=== PATIENT | female | born 1980 | race Caucasian/White ===

== ENCOUNTER 2017-01-23 15:11 | Emergency (ER) | payer OTHER ==
[2017-01-23 15:35] VITALS: BMI 23.5
[2017-01-23] MEDS ORDERED: ASPIRIN 325 MG TABLET PO ONE (16:56)
[2017-01-23] MEDS ORDERED: morphine CARPU-JECT 2 MG/1 ML DISP.SYRIN IVPUSH ONE (16:58)
[2017-01-23] MEDS ORDERED: SODIUM CHLORIDE 1,000 ML IV SCH (17:00)
--- NOTE | 2017-01-23 17:03 | PDOC ---
History of Present Illness - General Chief Complaint: CVA/TIA Stated Complaint: LT SIDE PAIN Time Seen by Provider: 01/23/17 16:36 History Source: Patient Exam Limitations: No Limitations - History of Present Illness Initial Comments: 01/23/17 17:05 Patient is a 36-year-old female with no past medical history presents to the emergency department today complaining of left facial numbness and left arm pain. Patient states that her symptoms started 4 AM this morning. She states that it hurts to move her arm and she also has some numbness and tingling as well. She states that she cannot feel the left side of her face. She has no other complaints at this time denies headache, weakness, lightheadedness, dizziness, shortness of breath, chest pain, ear pain, cough, urinary tract infection, frequency, urgency, dysuria, hematuria. Pt is primarily brazilian speaking. Denies recent travel, and smoking. NIH Stroke Scale - Last Known Well Date/Time & Onset Date Last Known Well: 01/23/17 Time Last Known Well: 04:00 - Initial Evaluation Level of consciousness: Alert Ask patient the month and their age: Answers both correctly Ask patient to open & close eyes; make fist and let go: Obeys both correctly Best gaze (horizontal eye movement): Normal Visual field testing: No visual field loss Facial paresis (Show teeth/raise eyebrows/close eyes tight): Normal symmetrical movement Motor Function: Left Arm: Normal Motor Function: Right Arm: Normal (extends arm 90 (or 45) degrees for 10 seconds without drift Motor Function: Left Leg: Normal (extends leg 30 degrees for 5 seconds without drift) Motor Function: Right Leg: Normal (extends leg 30 degrees for 5 seconds without drift) Limb Ataxia: No ataxia Sensory(Use pinprick test arms,legs,trunk,face/side to side): Mild to moderate decrease in sensation Best language (Describe picture, name items, read sentences): No Aphasia Dysarthria (read several words): Normal articulation Extinction and Inattention: No abnormality - Total Score NIH Stroke Scale Score: 1 Past History - Travel Traveled outside of the country in the last 30 days: No Close contact w/someone who was outside of country & ill: No - Past Medical History Allergies/Adverse Reactions: Allergies Allergy/AdvReac Type Severity Reaction Status Date / Time No Known Allergies Allergy Verified 01/23/17 15:31 Home Medications: Ambulatory Orders NK [No Known Home Medication] 01/23/17 - Immunization History Immunization Up to Date: Yes - Suicide/Smoking/Psychosocial Hx Smoking History: Never smoked Hx Alcohol Use: No Drug/Substance Use Hx: No Substance Use Type: None Review of Systems - Review of Systems Able to Perform ROS?: Yes Comments:: 01/23/17 17:05 CONSTITUTIONAL: Absent: fever, chills, diaphoresis, generalized weakness, malaise, loss of appetite HEENT: Absent: rhinorrhea, nasal congestion, throat pain, throat swelling, difficulty swallowing, mouth swelling, ear pain, eye pain, visual Changes CARDIOVASCULAR: Absent: chest pain, loss of consciousness, palpitations, irregular heart rate, peripheral edema RESPIRATORY: Absent: cough, shortness of breath, dyspnea with exertion, orthopnea, wheezing, stridor, hemoptysis GASTROINTESTINAL: Absent: abdominal pain, abdominal distension, nausea, vomiting, diarrhea, constipation, melena, hematochezia GENITOURINARY: Absent: dysuria, frequency, urgency, hesitancy, hematuria, flank pain, genital pain MUSCULOSKELETAL: Present: L arm pain Absent: myalgia, arthralgia, joint swelling SKIN: Absent: rash, itching, pallor HEMATOLOGIC/IMMUNOLOGIC: Absent: easy bleeding, easy bruising, lymphadenopathy, frequent infections ENDOCRINE: Absent: unexplained weight gain, unexplained weight loss, heat intolerance, cold intolerance NEUROLOGIC: Present: numbness and tingling to face. Absent: headache, focal weakness or dizziness, unsteady gait, seizure, mental status changes, bladder or bowel incontinence PSYCHIATRIC: Absent: anxiety, depression, suicidal or homicidal ideation, hallucinations. Is the patient limited Estonian proficient: No *Physical Exam - Vital Signs Last Vital Signs Temp Pulse Resp BP Pulse Ox 98.0 F 60 20 122/56 100 01/23/17 15:32 01/23/17 15:32 01/23/17 15:32 01/23/17 15:32 01/23/17 15:32 - Physical Exam Comments: 01/23/17 17:06 GENERAL: Well developed, well nourished. Awake and alert. No acute distress. HEENT: Normocephalic, atraumatic. PERRLA, EOMI. No conjunctival pallor. Sclera are non- icteric. Moist mucous membranes. Oropharynx is clear. NECK: Supple. Full ROM. No JVD. Carotid pulses 2+ and symmetric, without bruits. No thyromegaly. No lymphadenopathy. CARDIOVASCULAR: Regular rate and rhythm. No murmurs, rubs, or gallops. Distal pulses are 2+ and symmetric. PULMONARY: No evidence of respiratory distress. Lungs clear to auscultation bilaterally. No wheezing, rales or rhonchi. ABDOMINAL: Soft. Non-tender. Non-distended. No rebound or guarding. No organomegaly. Normoactive bowel sounds. MUSCULOSKELETAL Normal range of motion at all joints. No bony deformities or tenderness. No CVA tenderness. EXTREMITIES: No cyanosis. No clubbing. No edema. No calf tenderness. SKIN: Warm and dry. Normal capillary refill. No rashes. No jaundice. NEUROLOGICAL: Alert, awake, appropriate. Cranial nerves 2-12 intact. Light touch deficient on the R V2 (face). No deficits to light touch and temperature in the rest of the face, upper extremities and lower extremities. No motor deficits in the in face , upper extremities and lower extremities. Normoreflexic in the upper and lower extremities. Normal speech. Toes are down-going bilaterally. Gait is normal without ataxia. PSYCHIATRIC: Cooperative. Good eye contact. Appropriate mood and affect. ED Treatment Course - LABORATORY CBC & Chemistry Diagram: 01/23/17 17:15 01/23/17 17:15 - RADIOLOGY Radiology Studies Ordered: Category Date Time Status HEAD CT (STROKE) [CT] Stat CT Scan 01/23/17 16:56 Ordered Medical Decision Making - Medical Decision Making 01/23/17 18:17 Patient is a 36-year-old female with no past medical history of since the emergency department with 12 hours of facial numbness to the left side and arm pain. Given onset of symptoms will rule out TIA/stroke. Reflexes are normal, less likely MS given lack of occular symptoms. No ptosis or palsy. 1.CBC, CMP, Cardiac labs, PT/INR, UA, UC 2.CT head, EKG 3.IV fluids, morphine 4.reevaluate 01/23/17 19:[address] is negative at this time no evidence of acute intracranial pathology or bleed. Will add Lyme titer at this time. Will consult with Dr. Vargas for further recommendations. Labs are unremarkable at this time. Pt. states that her pain is a little better after the morphine. Sign out given to ORION Quezada for further evaluation and for consult with Dr. Vargas. *DC/Admit/Observation/Transfer Diagnosis at time of Disposition: Facial paresthesia, Arm paresthesia, left - Discharge Dispostion Disposition: HOME Condition at time of disposition: Stable - Referrals Referrals: Armando Molina MD [Staff Physician] - Becky Conde [Primary Care Provider] - - Patient Instructions Printed Discharge Instructions: DI for Numbness/tingling Print Language: THAI
[2017-01-23] MEDS ORDERED: morphine CARPU-JECT 2 MG/1 ML DISP.SYRIN ONE (17:12)
[2017-01-23] MEDS ORDERED: ASPIRIN 325 MG TABLET ONE (17:12)
[2017-01-23 17:26] LABS: EOSINOPHIL 2.2 % (0-4.5); MCH 26.4 pg (25.7-33.7); MCHC 32.6 g/dl (32.0-36.0); MEAN PLT VOLUME 10.9 fl (7.5-11.1); PLATELET COUNT 149 K/MM3 (134-434); RDW 13.9 % (11.6-15.6); WHITE BLOOD COUNT 5.4 K/mm3 (4.0-10.0)
[2017-01-23 17:29] LABS: URINE APPEARANCE CLEAR; URINE BILIRUBIN NEGATIVE (NEGATIVE); URINE BLOOD NEGATIVE (NEGATIVE); URINE COLOR STRAW; URINE GLUCOSE (UA) NEGATIVE (NEGATIVE); URINE KETONE NEGATIVE (NEGATIVE); URINE LEUK ESTERASE TRACE (NEGATIVE); URINE NITRITE NEGATIVE (NEGATIVE); URINE PROTEIN NEGATIVE (NEGATIVE); URINE UROBILINOGEN NEGATIVE mg/dL (0.2-1.0)
[2017-01-23 17:31] LABS: URINE RBC 1 /hpf (0-3); URINE WBC 4 /hpf (3-5)
[2017-01-23 17:48] LABS: INR 1.02 (0.82-1.09); PROTHROMBIN TIME (PATIENT) 11.2 SEC (9.98-11.88)
[2017-01-23 17:53] LABS: ALBUMIN 3.8 g/dl (3.4-5.0); ANION GAP 3 (8-16); CALCIUM 9.4 mg/dL (8.5-10.1); CO2 32 mmol/L (21-32); CREATININE 0.5 mg/dL (0.55-1.02); GLUCOSE,RANDOM 101 mg/dL (74-106); SGOT/AST 10 U/L (15-37); SGPT/ALT 16 U/L (12-78)
[2017-01-23 17:57] LABS: ALK PHOS 72 U/L (45-117); BILIRUBIN,TOTAL 0.2 mg/dL (0.2-1.0); CPK 78 IU/L (26-192); TOT PROT 7.5 g/dl (6.4-8.2); TROPONIN I < 0.02 ng/ml (0.00-0.05)
--- NOTE | 2017-01-23 18:48 | PDOC ---
*Physical Exam - Vital Signs Last Vital Signs Temp Pulse Resp BP Pulse Ox 98.0 F 60 20 122/56 100 01/23/17 15:32 01/23/17 15:32 01/23/17 15:32 01/23/17 15:32 01/23/17 15:32 - Physical Exam Comments: 01/23/17 18:47 The patient was examined by [DERRELL Hamilton] under my direct supervision. I personally evaluated the patient. I concur with the above findings and the plan of care. 01/23/17 21:59 Patient is well-appearing 36-year-old female who presents to the ER with left facial paresthesias since 4 AM on the day of arrival and left upper extremity pain and paresthesias in the C5/C6 dermatomal distribution. In the ER, patient is well-appearing, afebrile, hemodynamically stable. Serial evaluations reveal decreased fine touch in V1 and more pronounced in V2 distribution on the left; TMs are within normal limit bilaterally. The rest of cranial nerve evaluation is within normal limit. Patient has mildly decreased fine touch within the C5/ C6 dermatomal distribution, most pronounced to the mid forearm. DTRs are +2 bilaterally to upper and lower extremities. Gait is stable. Visual acuity is 20/ 20 bilaterally without corrective lenses. There is no evidence of neurogenic bladder. CT of head shows no evidence of acute cranial pathology. I do not suspect demyelinating disease or CVA at this time. Case discussed with Dr. Molina of neurology. He agrees the patient can be discharged with outpatient follow-up further evaluation. Patient advised of the plan of care and is expressed understanding. Will discharge. ED Treatment Course - LABORATORY CBC & Chemistry Diagram: 01/23/17 17:15 01/23/17 17:15 - ADDITIONAL ORDERS Additional order review: Laboratory Results 01/23/17 01/23/17 01/23/17 17:15 17:15 17:07 PT with INR 11.20 INR 1.02 Sodium 139 Potassium 4.2 Chloride 104 Carbon Dioxide 32 Anion Gap 3 L BUN 15 Creatinine 0.5 L Creat Clearance w eGFR > 60 Random Glucose 101 D Calcium 9.4 Total Bilirubin 0.2 D AST 10 L ALT 16 Alkaline Phosphatase 72 Creatine Kinase 78 Troponin I < 0.02 Total Protein 7.5 Albumin 3.8 Urine Color Urine Appearance Urine pH Urine Protein Urine Glucose (UA) Urine Ketones Urine Blood Urine Nitrite Urine Bilirubin Urine Urobilinogen Urine RBC Urine WBC Ur Epithelial Cells Urine HCG, Qual Negative 01/23/17 17:07 PT with INR INR Sodium Potassium Chloride Carbon Dioxide Anion Gap BUN Creatinine Creat Clearance w eGFR Random Glucose Calcium Total Bilirubin AST ALT Alkaline Phosphatase Creatine Kinase Troponin I Total Protein Albumin Urine Color Straw Urine Appearance Clear Urine pH 7.0 Urine Protein Negative Urine Glucose (UA) Negative Urine Ketones Negative Urine Blood Negative Urine Nitrite Negative Urine Bilirubin Negative Urine Urobilinogen Negative Urine RBC 1 Urine WBC 4 Ur Epithelial Cells Rare Urine HCG, Qual 01/23/17 17:15 RBC 4.46 MCV 81.0 MCHC 32.6 RDW 13.9 MPV 10.9 D Neutrophils % 39.0 L Lymphocytes % 50.9 H Monocytes % 6.9 Eosinophils % 2.2 Basophils % 1.0 - Medications Given in the ED: ED Medications Discontinued Medications Generic Name Dose Route Start Last Admin Trade Name Freq PRN Reason Stop Dose Admin Aspirin 325 mg 01/23/17 16:56 01/23/17 17:30 Asa - PO 01/23/17 16:57 325 mg ONCE ONE Administration Morphine Sulfate 2 mg 01/23/17 16:58 01/23/17 17:31 Morphine Injection - IVPUSH 01/23/17 16:59 Not Given ONCE ONE *DC/Admit/Observation/Transfer Diagnosis at time of Disposition: Facial paresthesia, Paresthesia of left upper extremity - Discharge Dispostion Disposition: HOME Condition at time of disposition: Stable - Referrals Referrals: Armando Molina MD [Staff Physician] - - Patient Instructions Printed Discharge Instructions: DI for Numbness/tingling Print Language: MACEDONIAN
[2017-01-23 19:28] VITALS: TEMP 98.2
[2017-01-23 22:10] VITALS: BP 95/64; PULSE 64
--- NOTE | 2017-01-24 14:10 | EKG ---
Test Reason : Blood Pressure : / mmHG Vent. Rate : 057 BPM Atrial Rate : 057 BPM P-R Int : 172 ms QRS Dur : 082 ms QT Int : 416 ms P-R-T Axes : 065 044 043 degrees QTc Int : 404 ms POOR DATA QUALITY, INTERPRETATION MAY BE ADVERSELY AFFECTED SINUS BRADYCARDIA LOW VOLTAGE QRS BORDERLINE ECG WHEN COMPARED WITH ECG OF 17-NOV-2015 13:09, T WAVE INVERSION NOW EVIDENT IN ANTERIOR LEADS Confirmed by SALIMA CARABALLO, AMRIT ([id number]) on 01/24/2017 2:10:14 PM Referred By: Confirmed By:AMRIT BORREGO MD
== END 2017-01-23 22:11 | disposition home or self-care (01) ==
LOC: JER 15:11
PROC: 3E033TZ Introduction of Destructive Agent into Peripheral Vein, Percutaneous Approach (ICD-10-PCS; principal; 2017-01-23)
DX: R20.2 Paresthesia of skin (principal)
CPT/HCPCS: 36415; 70450-TC; 80053; 81003; 81015; 84484; 84703; 85025; 85610; 86618; 86850; 86900; 86901; 93005; 93010; 96360; 96361; 99285-25

== ENCOUNTER 2017-11-27 11:43 | Emergency (ER) | payer OTHER ==
[2017-11-27 12:33] VITALS: BMI 25.7
--- NOTE | 2017-11-27 13:02 | PDOC ---
History of Present Illness - General Chief Complaint: Syncope/Near Syncope Stated Complaint: SYNCOPE (33 WKS ) Time Seen by Provider: 11/27/17 12:14 History Source: Patient, Compensation Agent Used (Kyrgyz) Exam Limitations: No Limitations - History of Present Illness Initial Comments: Pt (1 spontaneous miscarriage), with no significant PMH, presents from the [facility] via EMS for a syncopal episode. The pt states she had 3 episodes of non-bloody loose brown stool this morning after she ate some bread and milk. She then went to her OB appointment around 11am. She states she was lying on the examination table in the clinic room on her R side, when she experienced vertigo ("room spinning") and then had a short syncopal episode. The clinic staff were with her when she awoke, and she was having mild sternal chest pain and SOB. They administered oxygen and she improved for transport. She has been lying on her R side since she has been experiencing L sided hip pain that radiates down the L leg. She received an x-ray yesterday at an outside clinic but has not received results yet. She has also been having mild cramping abdominal pain (intermittent, lasts less than 1 minute), which is not associated with the back pain. She denies any leakage of fluid or vaginal bleeding, fevers/chills, nausea/vomiting, chest pain or SOB except for after the syncopal episode, urinary symptoms, or increased leg swelling. 11/27/17 13:37 Past History - Travel Traveled outside of the country in the last 30 days: No Close contact w/someone who was outside of country & ill: No - Past Medical History Allergies/Adverse Reactions: Allergies Allergy/AdvReac Type Severity Reaction Status Date / Time shellfish derived Allergy Rash Verified 11/27/17 12:09 Home Medications: Ambulatory Orders Vit/Iron Fum/Folic AC [ Tablet] 1 tab PO DAILY 10/30/17 Cardiac Disorders: No Hx Myocardial Infarction: No COPD: No DVT: No Diabetes: No HTN: No Hypercholesterolemia: No - Immunization History Immunization Up to Date: Yes - Suicide/Smoking/Psychosocial Hx Smoking History: Never smoked Have you smoked in the past 12 months: No Information on smoking cessation initiated: No Hx Alcohol Use: No Drug/Substance Use Hx: No Substance Use Type: None Review of Systems - Review of Systems Able to Perform ROS?: Yes Is the patient limited Prydeinig proficient: No Constitutional: Yes: Weight Stable. No: Chills, Diaphoresis, Fever, Loss of Appetite, Weakness HEENTM: No: Blurred Vision, Recent change in vision, Double Vision, Difficulty Swallowing Respiratory: Yes: Shortness of Breath. No: Cough, Orthopnea, Productive cough Cardiac (ROS): Yes: Chest Pain, Palpitations, Syncope. No: Edema, Irregular Heart Rate, Lightheadedness, Chest Tightness ABD/GI: Yes: Diarrhea, Abdominal cramping. No: Abdominal Distended, Constipated , Nausea, Poor Appetite, Poor Fluid Intake, Vomiting : No: Burning, Dysuria, Frequency, Hematuria, Pain, Urgency Musculoskeletal: No: Back Pain, Joint Pain Integumentary: No: Erythema, Pruritus, Rash Neurological: Yes: Paresthesia (tingling and pain over L hip and leg when lying on L side), Tingling, Dizziness. No: Headache, Numbness, Seizure, Unsteady Gait , Ataxia Psychiatric: No: Sleep Pattern Change, Change in Appetite Endocrine: No: Increased Urine, Change in Weight Hematologic/Lymphatic: No: Anemia, Blood Clots, Easy Bleeding All Other Systems: Reviewed and Negative *Physical Exam - Vital Signs Last Vital Signs Temp Pulse Resp BP Pulse Ox 96.9 F L 83 17 90/51 100 11/27/17 11:45 11/27/17 11:45 11/27/17 11:45 11/27/17 11:45 11/27/17 11:45 - Physical Exam General Appearance: Yes: Nourished, Appropriately Dressed. No: Apparent Distress HEENT: positive: EOMI, MARISABEL, Normal ENT Inspection, Normal Voice, Symmetrical, Pharynx Normal, Hearing Grossly Normal. negative: Scleral Icterus (R), Scleral Icterus (L), Tonsillar Exudate, Tonsillar Erythema Neck: positive: Trachea midline, Normal Thyroid, Supple. negative: Tender, Rigid, Lymphadenopathy (R), Lymphadenopathy (L) Respiratory/Chest: positive: Lungs Clear, Normal Breath Sounds. negative: Chest Tender, Respiratory Distress, Accessory Muscle Use Cardiovascular: positive: Regular Rhythm, Regular Rate, S1, S2. negative: Edema , JVD, Murmur, Tachycardia Vascular Pulses: Dorsalis-Pedis (R): 3+, Doralis-Pedis (L): 3+ Gastrointestinal/Abdominal: positive: Normal Bowel Sounds, Tender (mild suprapubic tenderness to palpation), Soft, Other (gravid uterus, appropriate for gestational age). negative: Flat, Organomegaly, Pulsatile Mass Lymphatic: negative: Adenopathy, Tenderness Musculoskeletal: positive: Normal Inspection. negative: CVA Tenderness Extremity: positive: Normal Capillary Refill, Normal Inspection, Normal Range of Motion, Pelvis Stable, Pedal Edema (mild, b/l). negative: Tender, Delayed Capillary Refill, Calf Tenderness Integumentary: positive: Normal Color, Dry, Warm. 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 negative: EOM Palsy, Facial Droop , Finger to Nose Heart Score/ECG Review - History History: Slightly suspicious - Electrocardiogram EKG: Normal - Age Age: </= 45 - Risk Factors Based on the list above the patient has:: No risk factors known - ECG Intrepretation Rhythm: Regular Rhythm - [place]: Normal - P and RI Prominent R with upright T in V1 (true posterior DE): No Delta Wave(s) Present: No WPW: No - QRS Poor R Wave Progression: No Q Wave Present: No - ST and T Early Repolarization: No Non Specific ST-T Wave changes: No Flattened T Waves: No Prolonged Q-T Interval: No - ECG Impressions Normal ECG: No Non-specific ST Elevation: No Ischemic Changes: No Bradycardia: No Torsades breonna Pointes: No WPW: No ED Treatment Course - LABORATORY CBC & Chemistry Diagram: 11/27/17 14:50 11/27/17 14:50 Medical Decision Making - Medical Decision Making Pt was seen at bedside. Also seen by Dr. Mcmullen. Pt likely has hypovolemia due to diarrhea and lying on R side. Also considering PE (given SOB and syncope) , arrhythmia, ACS, UTI. Ordered CBC, CMP, UA, Mg, Phos. Dr. Kaur (on ultrasound ) will do abdominal US for heart tones and b/l lower extremity US for DVT. 11/27/17 14:25 Fingerstick glucose 132, ECG normal sinus rhythm. 11/27/17 14:[address] Castaneda in OB ([phone]) who suggested the pt be treated with fluids and requested a call back after intervention. US done at bed-side by Dr. Kaur and Dr. Reeder showed low amniotic fluid levels, HR 124, and negative lower extremity doppler US. Very low suspicion for PE. Will call back OB after administration of fluids for admission. 11/27/17 14:[address] Castaneda for admission. Pt has received .5 L IV NS and is feeling better. CBC and CMP WNL for dehydration. Mg 1.7. Per nursing staff, IV line has not been running because pt has her arm bent. Line has been flushed and is patent. 11/27/17 15:52 Dr. Mcmullen spoke with L&D for admission. Pt will be admitted to L&D for continuous monitoring and additional IV fluids. Pt stable at bedside. 11/27/17 16:24 Pt going up to L&D. Pt taken up in wheelchair. 11/27/17 16:49 *DC/Admit/Observation/Transfer Diagnosis at time of Disposition: Diarrhea during , Syncope, near - Discharge Dispostion Condition at time of disposition: Improved Decision to Admit order: No - Referrals - Patient Instructions - Post Discharge Activity
[2017-11-27] MEDS ORDERED: SODIUM CHLORIDE 1,000 ML IV STA (14:04)
[2017-11-27] MEDS ORDERED: ACETAMINOPHEN 500 MG TABLET (FP) PO ONE (14:16)
[2017-11-27 14:57] LABS: BASO % 0.9 % (0-2.0); EOS % 0.9 % (0-4.5); HEMATOCRIT 32.1 % (32.4-45.2); HEMOGLOBIN 10.5 GM/dL (10.7-15.3); LYMPH % 12.3 % (8-40); MCH 26.4 pg (25.7-33.7); MCHC 32.7 g/dl (32.0-36.0); MEAN CELL VOLUME 80.8 fl (80-96); MEAN PLT VOLUME 9.1 fl (7.5-11.1); MONO % 6.5 % (3.8-10.2); NEUT % 79.4 % (42.8-82.8); PLATELET COUNT 192 K/MM3 (134-434); RBC 3.98 M/mm3 (3.60-5.2); RDW 13.9 % (11.6-15.6); WHITE BLOOD COUNT 8.9 K/mm3 (4.0-10.0)
[2017-11-27] MEDS ORDERED: ACETAMINOPHEN 325 MG TABLET (FP) ONE (14:58)
[2017-11-27 15:19] LABS: MAGNESIUM 1.7 mg/dL (1.8-2.4); PHOSPHOROUS 3.8 mg/dL (2.5-4.9)
[2017-11-27 15:21] LABS: ALBUMIN 2.6 g/dl (3.4-5.0); ANION GAP 13 (8-16); BLOOD UREA NITROGEN 8 mg/dL (7-18); CHLORIDE 109 mmol/L (98-107); CO2 22 mmol/L (21-32); CREATININE 0.5 mg/dL (0.55-1.02); GLUCOSE,RANDOM 102 mg/dL (74-106); POTASSIUM 3.9 mmol/L (3.5-5.1); SGOT/AST 15 U/L (15-37); SGPT/ALT 17 U/L (12-78); SODIUM 144 mmol/L (136-145)
[2017-11-27 15:23] LABS: ALK PHOS 90 U/L (45-117); BILIRUBIN,TOTAL 0.2 mg/dL (0.2-1.0); TOT PROT 6.3 g/dl (6.4-8.2)
[2017-11-27] MEDS ORDERED: ACETAMINOPHEN 325 MG TABLET (FP) PO ONE (15:38)
--- NOTE | 2017-11-27 16:04 | PDOC ---
Attending Attestation - HPI HPI: 11/27/17 16:15 The patient is a 37 year old female(), with no significant PMH, who presents to the emergency department via EMS for evaluation of a syncopal episode that occurred today while lying on the examination table for her OB appointment today. The patient states she experience vertigo before the episode and woke up with mild sternal chest pain and SOB, mild relief with O2. Documentation prepared by Jose D Escoto, acting as medical editor for Serg Mcmullen MD. <Jose D Escoto - Last Filed: 11/27/17 16:15> - Resident Resident Name: Ann Aaron - ED Attending Attestation I have performed the following: I have examined & evaluated the patient, The case was reviewed & discussed with the resident, I agree w/resident's findings & plan, Exceptions are as noted - Physicial Exam PE: 11/27/17 16:04 Patient is awake and alert, borderline hypertensive on initial evaluation Normocephalic and atraumatic PERRLA, EOMI mm-dry CTA RRR Abdomen soft, nontender, gravid uterus is appreciated with the fundus half way between the umbilicus and xiphoid Bilateral lower extremity nonpitting edema - Medical Decision Making 11/27/17 16:05 37-year-old female, 3 para 0, at 33 weeks gestation presents after a brief witnessed syncopal episode while at her [employer]ER's office. Patient complained of several loose watery stools shortly prior to the syncopal episode. Patient's symptoms resolved after she was placed in left lateral decubitus position. In the ER, patient is borderline hypotensive and otherwise asymptomatic. Bedside ultrasound showed minimal amount of amniotic fluid and FH of 124. No lower extremity DVT was identified on either extremity. Patient will require transfer to labor and delivery for continuous IV hydration and further management. 11/27/17 17:21 I discussed the case with Dr. Kamara of [employer]. I informed her of the ultrasound findings. I also informed of the patient had initially refused IV fluids or lab evaluation. Patient transferred to labor and delivery further management. <Serg Mcmullen - Last Filed: 11/27/17 17:21>
[2017-11-27 17:44] LABS: URINE APPEARANCE CLEAR; URINE BILIRUBIN NEGATIVE (<2.0 mg/dL); URINE COLOR STRAW; URINE GLUCOSE (UA) NEGATIVE (NEGATIVE); URINE KETONE NEGATIVE (NEGATIVE); URINE NITRITE NEGATIVE (NEGATIVE); URINE PROTEIN NEGATIVE (NEGATIVE); URINE UROBILINOGEN NEGATIVE mg/dL (0.2-1.0)
[2017-11-27 17:51] VITALS: BP 110/70; PULSE 79; TEMP 98.6
[2017-11-27 18:08] LABS: URINE LEUK ESTERASE 3+ (NEGATIVE)
[2017-11-27 18:11] LABS: EPI CELLS RARE /HPF (FEW)
[2017-11-27 18:49] LABS: ANISOCYTOSIS 1+; MACROCYTOSIS 1+
[2017-11-27 18:50] LABS: PLATELET ESTIMATE ADEQUATE
--- NOTE | 2017-11-28 16:48 | EKG ---
Test Reason : Blood Pressure : / mmHG Vent. Rate : 070 BPM Atrial Rate : 070 BPM P-R Int : 146 ms QRS Dur : 082 ms QT Int : 390 ms P-R-T Axes : 029 034 027 degrees QTc Int : 421 ms NORMAL SINUS RHYTHM NORMAL ECG WHEN COMPARED WITH ECG OF 23-JAN-2017 17:57, T WAVE INVERSION NO LONGER EVIDENT IN ANTERIOR LEADS Confirmed by AMRIT BORREGO MD ([id number]) on 11/28/2017 3:49:02 PM Referred By: Confirmed By:AMRIT BORREGO MD
== END 2017-11-27 18:50 | disposition home or self-care (01) ==
LOC: JER 11:43
PROC: 3E0337Z Introduction of Electrolytic and Water Balance Substance into Peripheral Vein, Percutaneous Approach (ICD-10-PCS; principal; 2017-11-27)
DX: O26.893 Other specified pregnancy related conditions, third trimester (principal); Z3A.33 33 weeks gestation of pregnancy; R19.7 Diarrhea, unspecified; R55 Syncope and collapse
CPT/HCPCS: 36415; 76801-TC; 80053; 81003; 81015; 83735; 84100; 85025; 87086; 93005; 93010; 99284-25; J7030

== ENCOUNTER 2022-05-30 04:20 | Day surgery (SDC) | payer OTHER ==
[2022-05-28 17:30] VITALS: BMI 25.0
[2022-05-30] MEDS ORDERED: ONDANSETRON 4 MG/2 ML VIAL ONE (13:40)
[2022-05-30] MEDS ORDERED: PROPOFOL 20 ML ONE ×2 (13:40→14:32)
[2022-05-30] MEDS ORDERED: LIDOCAINE HCL/PF 2% SDV 5ML VIAL ONE (13:40)
[2022-05-30] MEDS ORDERED: DEXAMETHASONE SOD PHOSPHATE 4 MG/1 ML VIAL ONE (13:40)
[2022-05-30] MEDS ORDERED: MIDAZOLAM HCL 2 MG/2 ML SINGLE DOSE VIAL ONE (13:40)
[2022-05-30] MEDS ORDERED: oxyCODONE HCL 5 MG TABLET PO PRN (13:44)
[2022-05-30] MEDS ORDERED: PROMETHAZINE HCL 25 MG/1 ML VIAL IVPB PRN (13:44)
[2022-05-30] MEDS ORDERED: ONDANSETRON 4 MG/2 ML VIAL IVPUSH PRN (13:44)
[2022-05-30] MEDS ORDERED: LACTATED RINGERS SOLUTION 1,000 ML IV SCH (13:45)
[2022-05-30] MEDS ORDERED: ceFAZolin SODIUM 1 GM VIAL ONE (13:52)
[2022-05-30] MEDS ORDERED: ceFAZolin SODIUM 1 GM VIAL IVPB ONE (13:58)
[2022-05-30] MEDS ORDERED: SILVER NITRATE 75% APPLIC STCK 1 PKT EACH TP ONE (14:22)
[2022-05-30] MEDS ORDERED: KETOROLAC TROMETHAMINE 30 MG/1 ML VIAL ONE (14:25)
[2022-05-30 16:45] VITALS: RESP 18
[2022-05-30 17:43] VITALS: BP 115/61; PULSE 74; TEMP 98
== END 2022-05-30 05:10 | disposition home or self-care (01) ==
LOC: JASU-SURG 04:20
PROVIDERS: ATTEND Obstetrics & Gynecology
PROC: 0UDB8ZX Extraction of Endometrium, Via Natural or Artificial Opening Endoscopic, Diagnostic (ICD-10-PCS; principal; 2022-05-30 14:00)
DX: N93.8 Other specified abnormal uterine and vaginal bleeding (principal); N94.6 Dysmenorrhea, unspecified
CPT/HCPCS: 81025; 88305-TC; 94760

== ENCOUNTER 2022-10-11 23:33 | Emergency (ER) | payer OTHER ==
[2022-10-12] MEDS ORDERED: ACETAMINOPHEN 1000 MG/100 ML BAG IVPB ONE (00:02)
[2022-10-12] MEDS ORDERED: FAMOTIDINE 20 MG/50 ML IVPB 20 MG/50 ML MG IVPB ONE ×2 (00:02→00:23)
[2022-10-12] MEDS ORDERED: MAG HYDROX/AL HYDROX/SIMETH 30 ML UNIT-DOSE CUP PO ONE (00:02)
[2022-10-12] MEDS ORDERED: ONDANSETRON 4 MG/2 ML VIAL IVPUSH ONE (00:02)
[2022-10-12 00:10] VITALS: BP 115/70; PULSE 86; RESP 18; TEMP 97.4; BMI 25.0
[2022-10-12] MEDS ORDERED: ACETAMINOPHEN INJECTION 100 ML IVPB ONE (00:22)
[2022-10-12] MEDS ORDERED: MAG HYDROX/AL HYDROX/SIMETH 30 ML UNIT-DOSE CUP ONE (00:22)
[2022-10-12] MEDS ORDERED: ONDANSETRON 4 MG/2 ML VIAL ONE (00:23)
[2022-10-12 01:07] LABS: BASO % 0.3 % (0-2.0); EOS % 0.5 % (0-4.5); HEMOGLOBIN 11.7 GM/dL (10.7-15.3); LYMPH % 9.4 % (8-40); MCH 25.6 pg (25.7-33.7); MCHC 32.5 g/dl (32.0-36.0); MEAN CELL VOLUME 78.7 fl (80-96); MONO % 3.9 % (3.8-10.2); NEUT % 85.9 % (42.8-82.8); PLATELET COUNT 165 10^3/uL (134-434); RBC 4.57 M/mm3 (3.60-5.2); RDW 14.5 % (11.6-15.6)
[2022-10-12 01:25] LABS: POTASSIUM 3.8 mmol/L (3.5-5.1)
[2022-10-12 01:27] LABS: ALBUMIN 3.8 g/dl (3.4-5.0); CALCIUM 8.8 mg/dL (8.5-10.1)
[2022-10-12 01:28] LABS: BLOOD UREA NITROGEN 18.5 mg/dL (7-18)
[2022-10-12 01:30] LABS: CREATININE 0.6 mg/dL (0.55-1.3)
[2022-10-12 01:32] LABS: BILIRUBIN,TOTAL 0.5 mg/dL (0.2-1); TOT PROT 7.1 g/dl (6.4-8.2)
== END 2022-10-12 02:15 | disposition home or self-care (01) ==
LOC: JER 23:33
PROC: 3E033GC Introduction of Other Therapeutic Substance into Peripheral Vein, Percutaneous Approach (ICD-10-PCS; principal; 2022-10-12)
PROC: 3E033GC Introduction of Other Therapeutic Substance into Peripheral Vein, Percutaneous Approach (ICD-10-PCS; 2022-10-12)
PROC: 3E033GC Introduction of Other Therapeutic Substance into Peripheral Vein, Percutaneous Approach (ICD-10-PCS; 2022-10-12)
DX: R11.2 Nausea with vomiting, unspecified (principal); R19.7 Diarrhea, unspecified; R10.13 Epigastric pain; R10.11 Right upper quadrant pain
CPT/HCPCS: 36415; 76705-TC; 80053; 83690; 84703; 85025; 93005; 93010; 99285-25